=== PATIENT | male | born 1975 | race American Indian/Alaskan Native ===

== ENCOUNTER 2018-03-15 14:10 | Emergency (ER) | payer SELFPAY ==
[2018-03-15] MEDS ORDERED: NACL 0.9% 500 ML 500 ML IV ONE (14:32)
[2018-03-15 15:02] LABS: Basophils # (Auto) 0.1 K/mm3 (0.0-0.1); Basophils % (Auto) 0.8 % (0.0-1.8); Eosinophils # (Auto) 0.1 K/mm3 (0.0-0.4); Eosinophils % (Auto) 0.4 % (0.0-4.3); Hematocrit 46.5 % (35.5-45.6); Hemoglobin 15.7 gm/dl (11.8-15.2); Lymphocytes # (Auto) 0.9 K/mm3 (1.2-5.4); Lymphocytes % (Auto) 5.2 % (13.4-35.0); Mean Corpuscular HGB Conc 34 % (32-34); Mean Corpuscular Hemoglobin 29 pg (28-32); Mean Corpuscular Volume 85 fl (84-94); Monocytes # (Auto) 1.5 K/mm3 (0.0-0.8); Platelet Count 299 K/mm3 (140-440); Red Blood Count 5.49 M/mm3 (3.65-5.03); Red Cell Distribution Width 14.2 % (13.2-15.2)
[2018-03-15 15:09] LABS: Alanine Aminotransferase 12 units/L (7-56); Albumin 3.7 g/dL (3.9-5); BUN/Creatinine Ratio 12; Blood Urea Nitrogen 12 mg/dL (9-20); Calcium 9.1 mg/dL (8.4-10.2); Hemolysis Index 15
[2018-03-15] MEDS ORDERED: TYLENOL PO ONE (15:49)
[2018-03-15] MEDS ORDERED: TORADOL IV ONE (15:50)
[2018-03-15 15:53] LABS: INR 1.05 (0.87-1.13)
[2018-03-15] MEDS ORDERED: HumuLIN R IV ONE ×2 (16:13→18:39)
[2018-03-15] MEDS ORDERED: NACL 0.9% 1000 ML 1,000 ML IV ONE ×2 (16:14→18:38)
[2018-03-15 16:38] LABS: Bilirubin,Urine NEG (Negative); Blood,Urine NEG (Negative); Color,Urine Yellow (Yellow); Urobilinogen,Urine < 2.0 mg/dL (<2.0); WBC,Urine < 1.0 /HPF (0.0-6.0)
--- NOTE | 2018-03-15 16:39 | Emergency Department Report ---
HPI - General Chief Complaint: Fever Time Seen by Provider: 03/15/18 15:48 - HPI HPI: 42-year-old male presents to the emergency department with complaint of lower abdominal pain and swelling with concern for infection. The patient says that he was bit by some unknown insect or something about one week ago. He tried treating the area with some topical antibiotics and had a few penicillin pills left over from some time in the past. However does not appear to have helped as the area of redness and discomfort has increased and started to swell. He has presented with a low-grade fever. The patient has a history of rvm-[id number]-fsvysswca diabetes but says that he has "weaned myself off of" the medications. No recent travel or sick contacts at home. No problems with bowel or bladder. ED Past Medical Hx - Past Medical History Previous Medical History?: Yes Hx Hypertension: Yes Hx Diabetes: Yes - Surgical History Additional Surgical History: left leg - Social History Smoking Status: Never Smoker Substance Use Type: None - Medications Home Medications: Home Medications Medication Instructions Recorded Confirmed Last Taken Type Garlic [Odor Free Garlic] 100 mg PO TID 03/15/18 03/15/18 Unknown History HYDROcodone/APAP 5-325 [[place] 1 each PO Q6HR PRN #12 tablet 03/15/18 Unknown Rx 5/325] Ibuprofen [Ibu] 800 mg PO TID 03/15/18 03/15/18 03/15/18 History Penicillin Vk [Veetids TAB] 250 mg PO TID 03/15/18 03/15/18 Unknown History Sulfamethoxazole/Trimethoprim 1 each PO BID #20 tablet 03/15/18 Unknown Rx [Bactrim DS TAB] ED Review of Systems ROS: Stated complaint: POSS INSECT BITE Other details as noted in HPI Comment: All other systems reviewed and negative Constitutional: fever. denies: weakness Eyes: denies: eye pain, eye discharge, vision change ENT: denies: ear pain, throat pain Respiratory: denies: cough, shortness of breath, wheezing Cardiovascular: denies: chest pain, palpitations Gastrointestinal: abdominal pain. denies: nausea, vomiting Genitourinary: denies: dysuria, discharge Musculoskeletal: denies: back pain, joint swelling, arthralgia Skin: rash, change in color Neurological: denies: headache, weakness, paresthesias Physical Exam - Physical Exam Vital Signs: Vital Signs 03/15/18 03/15/18 03/15/18 14:17 14:28 14:52 Temperature 100.7 F H 100.7 F H Pulse Rate 115 H 117 H Respiratory 15 24 Rate Blood Pressure 155/104 155/104 126/78 Blood Pressure [Left] O2 Sat by Pulse 98 98 Oximetry 03/15/18 03/15/18 15:00 15:15 Temperature 100.6 F H Pulse Rate 106 H 106 H Respiratory 12 11 L Rate Blood Pressure 120/76 120/76 Blood Pressure 120/76 [Left] O2 Sat by Pulse 96 97 Oximetry Physical Exam: GENERAL: The patient is well-developed well-nourished. HENT: Normocephalic. Atraumatic. Patient has moist mucous membranes. EYES: Extraocular motions are intact. Pupils equal reactive to light bilaterally. NECK: Supple. Trachea is midline. CHEST/LUNGS: Clear to auscultation. There is no respiratory distress noted. HEART/CARDIOVASCULAR: Regular. There is mild tachycardia. There is no murmur. ABDOMEN: Abdomen is soft. There is tenderness to the lower middle and lower left abdomen. No guarding. Patient has normal bowel sounds. Obese habitus. SKIN: Patient has erythema, warmth and thickening of the skin to the lower abdomen from midline to the left lower quadrant. Some of the skin has a orange peel type appearance and there is an area in the middle that feels very indurated. All this appears consistent with a cellulitis NEURO: The patient is awake, alert, and oriented. The patient is cooperative. The patient has no focal neurologic deficits. The patient has normal speech. MUSCULOSKELETAL: There is no tenderness or deformity. There is no limitation range of motion. There is no evidence of acute injury. ED Course Vital Signs 03/15/18 03/15/18 03/15/18 14:17 14:28 14:52 Temperature 100.7 F H 100.7 F H Pulse Rate 115 H 117 H Respiratory 15 24 Rate Blood Pressure 155/104 155/104 126/78 Blood Pressure [Left] O2 Sat by Pulse 98 98 Oximetry 03/15/18 03/15/18 15:00 15:15 Temperature 100.6 F H Pulse Rate 106 H 106 H Respiratory 12 11 L Rate Blood Pressure 120/76 120/76 Blood Pressure 120/76 [Left] O2 Sat by Pulse 96 97 Oximetry ED Medical Decision Making - Lab Data Result diagrams: 03/15/18 14:37 03/15/18 14:37 - Radiology Data Radiology results: report reviewed EXAM: US ABDOMEN LIMITED HISTORY: soft tissue, lower abd, cellulitis and abscess? In the left lower quadrant of the abdomen. Status post bug bite. TECHNIQUE: Limited soft tissue ultrasound of the left lower quadrant abdomen PRIORS: None. FINDINGS: Evaluation was performed over the area of both bite. There is subcutaneous soft tissue swelling in the area which can be seen with cellulitis. However, no well-defined focal solid or cystic collection is seen in the region. No evidence for abscess is seen. IMPRESSION: Dominique no evidence for abscess or other fluid collection in the left lower quadrant of the abdomen. There is subcutaneous edema present which can be associated with cellulitis. Transcribed By: ALONSO Dictated By: MAURICE ALDANA MD Electronically Authenticated By: MAURICE ALDANA MD Signed Date/Time: 03/15/181821 - Medical Decision Making This patient presents with lower abdominal discomfort, redness, swelling. He presents with some tachycardia and a fever. On top of that the patient is a non -insulin-dependent diabetic who has been noncompliant with his medications. Patient did have a low-grade fever and was given some Tylenol and Toradol. Labs show a leukocytosis of 17,000. He has a elevated blood sugar of 580 but there is no significant elevation in the anion gap or any venous acidosis and therefore low suspicion for DKA. The patient was convinced he had an abdominal wall abscess and was pushing very hard for an I&D and then D/C home. He allowed me to do an U/S that did not show any abscess but does appear to confirm the suspicion of cellulitis. Regarding his hyperglycemia, he was given 2L of NS and two doses of IV insulin and the BS came down to about 360. He was given a dose of IV ABX. With the patient's cellulitis, leukocytosis, fever, there is concern that the patient is starting to develop sepsis. On top of that, the patient has the cellulitis and is an uncontrolled diabetic. For these reasons I told the patient repeatedly that he needs to be admitted to the hospital for IV antibiotics and further evaluation. The patient would not agree to admission and/or hospitalization. I had a long conversation with the patient regarding my concerns and the risks of leaving AGAINST MEDICAL ADVICE which would include worsening of his hyperglycemia and possible DKA or HHNK, sepsis and/or septic shock which could then lead to hypotension, coma or even . I explained that cellulitis and other infections in diabetics often have worse outcomes and he should also be admitted for the hyperglycemia and a few days of IV antibiotics. However despite all of the lab and imaging results given to the patient, despite a lengthy conversation with my concerns and/or the risks of leaving, the patient still will not agree to admission. The patient is awake and alert and has a normal medical and/or decision-making capacity and did sign the AMA form. However I still gave the patient a prescription for antibiotics, pain medication, and referrals for primary care. He also understands that he can return immediately to the emergency department if he changes his mind regarding admission or has any worsening of his symptoms or with any acute distress. - Differential Diagnosis cellulitis, abscess, DKA, HHNK, sepsis Critical Care Time: No Critical care attestation.: If time is entered above; I have spent that time in minutes in the direct care of this critically ill patient, excluding procedure time. ED Disposition Clinical Impression: Cellulitis Qualifiers: Site of cellulitis: trunk Site of cellulitis of trunk: abdominal wall Qualified Code(s): L03.311 - Cellulitis of abdominal wall Fever Qualifiers: Fever type: unspecified Qualified Code(s): R50.9 - Fever, unspecified Uncontrolled diabetes mellitus Qualifiers: Diabetes mellitus type: type 2 Glycemic state: with hyperglycemia Qualified Code(s): E11.65 - Type 2 diabetes mellitus with hyperglycemia Hyperglycemia due to type 2 diabetes mellitus Qualifiers: Diabetes mellitus rodent exterminator insulin use: without penitentiary use Qualified Code(s ): E11.65 - Type 2 diabetes mellitus with hyperglycemia Disposition: DC-07 LEFT AGAINST MED ADVICE Is pt being admited?: No Condition: Fair Instructions: Cellulitis (ED), Fever in Adults (ED), Diabetes Mellitus Type 2 in Adults (ED), Diabetic Hyperglycemia (ED) Additional Instructions: Please follow up with a primary care physician in the next few days without fail. Please return to the emergency department if you change your mind about admission, you have worsening of your abdominal pain, intractable fever, or with any acute distress. Please take the antibiotics as prescribed. You have been prescribed a medication that is sedating and therefore should not be taken prior to driving, working, and responsible for children and in no way should be mixed with alcohol of any quantity. Try and stay away from foods that are high in sugar, carbohydrates and starches to help with your blood sugar. Keep a Blood sugar log. Prescriptions: HYDROcodone/APAP 5-325 [[place] 5/325] 1 each PO Q6HR PRN #12 tablet PRN Reason: Pain Sulfamethoxazole/Trimethoprim [Bactrim DS TAB] 1 each PO BID #20 tablet Referrals: GRAEME AKINS MD [Staff Physician] - [facility] [Outside] - [facility] Forms: AMA Form Time of Disposition: 20:38
[2018-03-15] MEDS ORDERED: VANCOMYCIN/NS 1 GM/250 ML 1 GM/250 ML BAG IV SCH (17:00)
[2018-03-15] MEDS ORDERED: MORPHINE IV ONE (17:25)
--- NOTE | 2018-03-15 18:23 | Ultrasound Report ---
FINAL REPORT EXAM: US ABDOMEN LIMITED HISTORY: soft tissue, lower abd, cellulitis and abscess? In the left lower quadrant of the abdomen. Status post bug bite. TECHNIQUE: Limited soft tissue ultrasound of the left lower quadrant abdomen PRIORS: None. FINDINGS: Evaluation was performed over the area of both bite. There is subcutaneous soft tissue swelling in the area which can be seen with cellulitis. However, no well-defined focal solid or cystic collection is seen in the region. No evidence for abscess is seen. IMPRESSION: Dominique no evidence for abscess or other fluid collection in the left lower quadrant of the abdomen. There is subcutaneous edema present which can be associated with cellulitis.
[2018-03-15 22:44] VITALS: BP 127/84
== END 2018-03-15 22:46 | disposition left against medical advice (07) ==
LOC: ED 14:10
DX: L03.311 Cellulitis of abdominal wall (principal); E11.65 Type 2 diabetes mellitus with hyperglycemia; I10 Essential (primary) hypertension
CPT/HCPCS: 36415; 76705; 80053; 81001; 82140; 82805; 82962; 85025; 85610; 87040; 87086; 93005; 93010; 96365; 96375; 96376; 99285; J1885; J3370; J7030; J1815; J2270

== ENCOUNTER 2018-12-13 11:39 | Inpatient (IN) | payer OTHER ==
[2018-12-13] MEDS ORDERED: NACL 0.9% 500 ML 500 ML IV ONE ×2 (11:56→20:26)
[2018-12-13] MEDS ORDERED: NACL 0.9% 1000 ML 1,000 ML ONE ×2 (11:58→20:44)
[2018-12-13] MEDS ORDERED: NACL 0.9% 1000 ML IV ONE (12:04)
[2018-12-13] MEDS ORDERED: ZOFRAN IV ONE ×2 (12:08→13:15)
[2018-12-13] MEDS ORDERED: MORPHINE IV ONE (12:08)
--- NOTE | 2018-12-13 12:20 | Emergency Department Report ---
ED General Adult HPI - General Chief complaint: Wound/Laceration Stated complaint: HYPERGLYCEMIA Time Seen by Provider: 12/13/18 12:03 Source: patient, EMS Mode of arrival: Stretcher Limitations: No Limitations - History of Present Illness Initial comments: The patient presents to the emergency department via EMS for a wound on his right leg. Patient states that he is diabetic and noticed that the wound began to get worse last week but has been present for quite some time. Patient denies any chest pain, shortness of breath, or abdominal pain. -: Gradual Location: lower extremity (extremities) Radiation: non-radiation Severity scale (0 -10): 8 Quality: sharp Consistency: constant Improves with: none Worsens with: none Associated Symptoms: denies other symptoms Treatments Prior to Arrival: none - Related Data Home Medications Medication Instructions Recorded Confirmed Last Taken Garlic [Odor Free Garlic] 100 mg PO TID 03/15/18 03/15/18 Unknown Ibuprofen [Ibu] 800 mg PO TID 03/15/18 03/15/18 03/15/18 Penicillin Vk [Veetids TAB] 250 mg PO TID 03/15/18 03/15/18 Unknown Previous Rx's Medication Instructions Recorded Last Taken Type HYDROcodone/APAP 5-325 [[place] 1 each PO Q6HR PRN #12 tablet 03/15/18 Unknown Rx 5/325] Sulfamethoxazole/Trimethoprim 1 each PO BID #20 tablet 03/15/18 Unknown Rx [Bactrim DS TAB] Allergies Allergy/AdvReac Type Severity Reaction Status Date / Time No Known Allergies Allergy Unverified 03/15/18 14:28 ED Review of Systems ROS: Stated complaint: HYPERGLYCEMIA Other details as noted in HPI Comment: All other systems reviewed and negative Constitutional: denies: chills, fever Eyes: denies: eye pain, eye discharge, vision change ENT: denies: ear pain, throat pain Respiratory: denies: cough, shortness of breath, wheezing Cardiovascular: denies: chest pain, palpitations Endocrine: no symptoms reported Gastrointestinal: denies: abdominal pain, nausea, diarrhea Genitourinary: denies: urgency, dysuria Musculoskeletal: denies: back pain, joint swelling, arthralgia Skin: denies: rash, lesions Neurological: denies: headache, weakness, paresthesias Psychiatric: denies: anxiety, depression Hematological/Lymphatic: denies: easy bleeding, easy bruising ED Past Medical Hx - Past Medical History Previous Medical History?: Yes Hx Hypertension: Yes Hx Diabetes: Yes - Surgical History Past Surgical History?: Yes Additional Surgical History: left leg - Social History Smoking Status: Former Smoker Substance Use Type: None - Medications Home Medications: Home Medications Medication Instructions Recorded Confirmed Last Taken Type Garlic [Odor Free Garlic] 100 mg PO TID 03/15/18 03/15/18 Unknown History HYDROcodone/APAP 5-325 [[place] 1 each PO Q6HR PRN #12 tablet 03/15/18 Unknown Rx 5/325] Ibuprofen [Ibu] 800 mg PO TID 03/15/18 03/15/18 03/15/18 History Penicillin Vk [Veetids TAB] 250 mg PO TID 03/15/18 03/15/18 Unknown History Sulfamethoxazole/Trimethoprim 1 each PO BID #20 tablet 03/15/18 Unknown Rx [Bactrim DS TAB] ED Physical Exam - General Limitations: No Limitations General appearance: alert, in no apparent distress - Head Head exam: Present: atraumatic, normocephalic - Eye Eye exam: Present: normal appearance, PERRL, EOMI - ENT ENT exam: Present: mucous membranes moist - Neck Neck exam: Present: normal inspection - Respiratory Respiratory exam: Present: normal lung sounds bilaterally. Absent: respiratory distress, wheezes, rales - Cardiovascular Cardiovascular Exam: Present: normal rhythm, tachycardia. Absent: systolic murmur, diastolic murmur, rubs, gallop - GI/Abdominal GI/Abdominal exam: Present: soft, normal bowel sounds. Absent: distended, tenderness - Rectal Rectal exam: Present: deferred - Extremities Exam Extremities exam: Present: other (malodorous wound or of the right upper extremity with surrounding erythema and drainage with crepitus on exam very consistent with necrotizing fasciitis) - Back Exam Back exam: Present: normal inspection - Neurological Exam Neurological exam: Present: alert, oriented X3, CN II-XII intact. Absent: motor sensory deficit ((No nondistended) - Psychiatric Psychiatric exam: Present: normal affect, normal mood - Skin Skin exam: Present: warm, dry, intact, normal color. Absent: rash ED Course Vital Signs 12/13/18 12/13/18 11:52 12:36 Temperature 98.9 F 99.1 F Pulse Rate 150 H 147 H Respiratory 26 H 22 Rate Blood Pressure 121/66 Blood Pressure 134/66 [Right] O2 Sat by Pulse 99 95 Oximetry ED Medical Decision Making - Lab Data Result diagrams: 12/13/18 12:14 Lab Results 12/13/18 12/13/18 Range/Units 11:54 12:00 VBG pH 7.391 (7.320-7.420) POC Glucose > 500 H (70-105) Lab Results 12/13/18 12/13/18 Range/Units 11:54 12:00 VBG pH 7.391 (7.320-7.420) POC Glucose > 500 H (70-105) Lab Results 12/13/18 12/13/18 12/13/18 Range/Units 11:54 12:00 12:14 WBC 26.7 H (4.5-11.0) K/mm3 RBC 4.72 (3.65-5.03) M/mm3 Hgb 13.2 (11.8-15.2) gm/dl Hct 40.4 (35.5-45.6) % MCV 86 (84-94) fl MCH 28 (28-32) pg MCHC 33 (32-34) % RDW 15.6 H (13.2-15.2) % Plt Count 286 (140-440) K/mm3 VBG pH 7.391 (7.320-7.420) POC Glucose > 500 H (70-105) - EKG Data -: EKG Interpreted by Me EKG shows normal: sinus rhythm Rate: tachycardia - Medical Decision Making Sepsis protocol initiated Surgical Consultation obtained Patient will go to the OR Critical Care Time: Yes Critical care time in (mins) excluding proc time.: 35 Critical care attestation.: If time is entered above; I have spent that time in minutes in the direct care of this critically ill patient, excluding procedure time. ED Disposition Clinical Impression: Necrotizing fasciitis, Sepsis Disposition: [id number] OP ADMIT IP TO THIS HOSP Is pt being admited?: Yes Does the pt Need Aspirin: No Condition: Fair
--- NOTE | 2018-12-13 12:27 | History and Physical Report ---
History of Present Illness Chief complaint: My leg hurts History of present illness: 43 YO Male with MO, HTN, DM presents to ED for evaluation. Pt states that he has experienced redness and pain in his right leg over the past week with acutely worsening symptoms over the past 2 days. Pt acknowledges foul smelling discharge from a newly formed thigh wound which has developed over the past 2 days. Pt states that the pain to his leg is 7-8/10, constant, worsened with movement, relieved somewhat with rest/nonmovement. EMS was notified, and upon arrival the patient was found to be in distress. Pt transported to [facility]. Pt seen and evaluated in ED and found to have RLE Necrotizing Fasciitis, as well as Sepsis and DKA. Pt admitted to ICU and initiated on DKA protocol. Surgery team consulted in ED. Pt also initiated on Sepsis protocol, and treated with braod spectrum IV antibiotic therapy and IVF resuscitation therapy. Pt acknowledges subjective fever. Pt denies CP, Palpitations, Trauma, Falls, BRBPR, Shortness of breath, calf pain, prolonged travel/immobility, individual/family history of DVT/PE. No prior admission listed for review. All listed medication reconciled at time of admission. Past History Past Medical History: diabetes, hypertension, other (MO) Past Surgical History: Other (Left leg surgery) Social history: single, lives with family. denies: smoking, alcohol abuse, prescription drug abuse Family history: diabetes, hypertension Medications and Allergies Allergies Allergy/AdvReac Type Severity Reaction Status Date / Time No Known Allergies Allergy Unverified 03/15/18 14:28 Home Medications Medication Instructions Recorded Confirmed Last Taken Type No Known Home Medications [No 12/13/18 12/13/18 Unknown History Reported Home Medications] Active Meds: Active Medications Vancomycin HCl 2,000 mg/ (Sodium Chloride) 540 mls @ 333 mls/hr IV ONCE ONE; Protocol Stop: 12/13/18 13:45 Piperacillin Sod/Tazobactam Sod (Zosyn/Ns 4.5gm/100ml) 4.5 gm in 100 mls @ 200 mls/hr IV Q8HR [facility]; Protocol Review of Systems Constitutional: fever, no weight loss, no weight gain, no chills, no sweats Ears, nose, mouth and throat: no ear pain, no ear discharge, no tinnitis, no decreased hearing, no nose pain Cardiovascular: no chest pain, no orthopnea, no palpitations, no rapid/irregular heart beat, no edema Respiratory: no cough, no cough with sputum, no excessive sputum, no hemoptysis, no shortness of breath Gastrointestinal: nausea, no vomiting, no diarrhea, no constipation Genitourinary Male: no hematuria, no flank pain, no discharge, no urinary frequency, no urinary hesitancy Rectal: no pain, no incontinence, no bleeding Musculoskeletal: no neck stiffness, no neck pain, no shooting arm pain, no arm numbness/tingling, no low back pain, no leg numbness/tingling Integumentary: redness, no rash, no pruritis, no wounds, no jaundice, no boils Neurological: no head injury, no transient paralysis, no paralysis, no weakness, no parathesias, no tingling, no seizures, no syncope Psychiatric: no anxiety, no memory loss, no change in sleep habits, no insomnia, no hypersomnia, no change in libido, no suicidal ideation, no hallucinations Endocrine: no cold intolerance, no heat intolerance, no polyphagia, no polydipsia, no polyuria, no excessive sweating, no flushing Hematologic/Lymphatic: no easy bruising, no easy bleeding Allergic/Immunologic: no urticaria, no allergic rhinitis, no wheezing Exam - Constitutional Vitals: Temp Pulse Resp BP Pulse Ox 98.9 F 150 H 26 H 121/66 99 12/13/18 11:52 12/13/18 11:52 12/13/18 11:52 12/13/18 11:52 12/13/18 11:52 General appearance: Present: severe distress, obese, disheveled - EENT Eyes: Present: PERRL ENT: hearing intact, clear oral mucosa - Neck Neck: Present: supple, normal ROM - Respiratory Respiratory effort: normal Respiratory: bilateral: CTA - Cardiovascular Rhythm: other (tachycardia) Heart Sounds: Present: S1 & S2. Absent: rub, click - Extremities Extremities: pulses symmetrical, No edema Peripheral Pulses: abnormal (capillary refill greater than 3.5 seconds) - Abdominal General gastrointestinal: Present: soft, non-tender, non-distended, normal bowel sounds Male genitourinary: Present: normal - Integumentary Integumentary: Present: clear, dry, erythema - Musculoskeletal Musculoskeletal: generalized weakness - Psychiatric Psychiatric: appropriate mood/affect, intact judgment & insight - Neurologic Neurologic: CNII-XII intact, moves all extremities Results - Labs CBC & Chem 7: 12/13/18 12:14 12/13/18 14:52 Labs: Abnormal lab results 12/13/18 Range/Units 11:54 POC Glucose > 500 H (70-105) Assessment and Plan - Patient Problems (1) Sepsis Current Visit: Yes Status: Acute Qualifiers: Sepsis type: sepsis due to unspecified organism Qualified Code(s): A41.9 - Sepsis, unspecified organism Plan to address problem: Sepsis Protocol: Admit to ICU, IVF resuscitation therapy, IV antibiotic therapy, CBC, CMP, Blood Cultures, serial lactic acid, monitor uop q shift. The high probability of a clinically significant, sudden or life threatening deterioration of the [Neuro, renal, cardiac,respiratory] system(s) required my full and direct attention, intervention and personal management. The aggregate critical care time was [65] minutes. This time is in addition to time spent per forming reported procedures but includes the following: [x] Data Review and interpretation [x] Patient assessment and monitoring of vital signs [x] Documentation [x] Medication orders and management (2) DKA (diabetic ketoacidoses) Current Visit: Yes Status: Acute Qualifiers: Diabetes mellitus type: type 1 Plan to address problem: DKA Protocol: Insulin drip, IVF resuscitation therapy, serial bmp, monitor uop q shift, monitor anion gap. (3) Obesity hypoventilation syndrome Current Visit: Yes Status: Acute Plan to address problem: supplemental oxygen, nebulizer therapy, pulse oximetry, NIPPV as clinically indicated, supportive care. (4) Necrotizing fasciitis Current Visit: Yes Status: Acute Plan to address problem: IV antibiotic therapy, Surgery consulted in ED, Pending surgical intervention when medically stable. (5) Acidosis Current Visit: Yes Status: Acute Plan to address problem: IVF resuscitation therapy, serial lactic acid, supportive care. (6) DVT prophylaxis Current Visit: Yes Status: Acute Plan to address problem: SCD to BLE while in bed, Prophylactic heparin
[2018-12-13 12:29] LABS: Hematocrit 40.4 % (35.5-45.6); Hemoglobin 13.2 gm/dl (11.8-15.2); Mean Corpuscular HGB Conc 33 % (32-34); Mean Corpuscular Volume 86 fl (84-94); Platelet Count 286 K/mm3 (140-440); Red Blood Count 4.72 M/mm3 (3.65-5.03); Red Cell Distribution Width 15.6 % (13.2-15.2)
--- NOTE | 2018-12-13 12:37 | XRay Report ---
AP CHEST: HISTORY: Possible sepsis Moderate cardiomegaly and mild pulmonary venous congestion are identified. The lungs are generally clear. No evidence for pneumonia, CHF or pneumothorax. IMPRESSION: Cardiomegaly and pulmonary venous congestion.
[2018-12-13] MEDS ORDERED: SODIUM CHLORIDE FLUSH SYRINGE 10 ML IV PRN (12:45)
[2018-12-13] MEDS ORDERED: D50W (25GM) Syringe IV PRN (12:46)
[2018-12-13 12:48] LABS: Albumin 2.6 g/dL (3.9-5); Calcium 8.5 mg/dL (8.4-10.2)
[2018-12-13 12:52] LABS: INR 1.13 (0.87-1.13)
[2018-12-13] MEDS: ZOSYN/NS 4.5GM/100ML 4.5 GM/100 ML VIAL IV SCH ×2 (12:52→22:29)
[2018-12-13] MEDS ORDERED: VANCOMYCIN PHARMACY TO DOSE IV SCH (13:00)
[2018-12-13] MEDS ORDERED: ZOFRAN IM ONE (13:19)
--- NOTE | 2018-12-13 13:32 | Consultation ---
History of Present Illness Consult date: 12/13/18 Reason for consult: other (right leg wound) Chief complaint: right leg wound - History of present illness History of present illness: 43 year old male with a one week hx of worsening right leg wound. History is a little unclear as he and his mother in the room have differing account of when events started. He admits to being non compliant with medication for diabetes and htn because he says the medication makes him feel sick. He has had wounds before that have need to be surgically debrided. Past History Past Medical History: diabetes, hypertension Past Surgical History: Other (left leg soft tissue excsions) Social history: smoking Family history: diabetes, stroke Medications and Allergies Allergies Allergy/AdvReac Type Severity Reaction Status Date / Time No Known Allergies Allergy Unverified 03/15/18 14:28 Home Medications Medication Instructions Recorded Confirmed Last Taken Type Garlic [Odor Free Garlic] 100 mg PO TID 03/15/18 03/15/18 Unknown History HYDROcodone/APAP 5-325 [[place] 1 each PO Q6HR PRN #12 tablet 03/15/18 Unknown Rx 5/325] Ibuprofen [Ibu] 800 mg PO TID 03/15/18 03/15/18 03/15/18 History Penicillin Vk [Veetids TAB] 250 mg PO TID 03/15/18 03/15/18 Unknown History Sulfamethoxazole/Trimethoprim 1 each PO BID #20 tablet 03/15/18 Unknown Rx [Bactrim DS TAB] Active Meds: Active Medications Dextrose (D50w (25gm) Syringe) 0 ml IV ONCE PRN PRN Reason: Hypoglycemia Vancomycin HCl 2,000 mg/ (Sodium Chloride) 540 mls @ 270 mls/hr IV ONCE ONE; Protocol Stop: 12/13/18 15:59 Piperacillin Sod/Tazobactam Sod (Zosyn/Ns 4.5gm/100ml) 4.5 gm in 100 mls @ 200 mls/hr IV Q8HR EVA; Protocol Last Admin: 12/13/18 12:52 Dose: 200 mls/hr Documented by: Insulin Human Regular 100 (units/ Sodium Chloride) 100 mls @ 1 mls/hr IV TITR EVA; Protocol Sodium Chloride (Sodium Chloride Flush Syringe 10 Ml) 10 ml IV BID EVA Sodium Chloride (Sodium Chloride Flush Syringe 10 Ml) 10 ml IV PRN PRN PRN Reason: LINE FLUSH Review of Systems - Constitutional weakness, poor appetite - Gastrointestinal nausea, vomiting, diarrhea - Muskuloskeletal shooting leg pain (right thigh pain) - Integumentary wounds, blisters, darkening of skin Exam Vital Signs Temp Pulse Resp BP Pulse Ox 98.9 F 150 H 26 H 121/66 99 12/13/18 11:52 12/13/18 11:52 12/13/18 11:52 12/13/18 11:52 12/13/18 11:52 - General physical appearance Positive: moderate distress, severe pain, obese - Abdomen Abdomen: Present: soft - Additional Findings right thigh with extensive cellulitis that wraps from anterior to posterior. The anterior proximal thigh has necrotic skin measuring more than [id number] with blisters and foul odor. sensory is intact but exquisitely tender to any palpation. Results - Labs 12/13/18 12:14 12/13/18 12:00 Abnormal lab results 12/13/18 12/13/18 12/13/18 Range/Units 11:54 12:00 12:00 WBC (4.5-11.0) K/mm3 RDW (13.2-15.2) % PT 15.2 H (12.2-14.9) Sec. Sodium 123 L (137-145) mmol/L Chloride 80.4 L (98-107) mmol/L Carbon Dioxide 18 L (22-30) mmol/L BUN 60 H (9-20) mg/dL Creatinine 3.0 H (0.8-1.5) mg/dL Glucose 646 H* (75-100) mg/dL POC Glucose > 500 H (70-105) Lactic Acid (0.7-2.0) mmol/L Alkaline Phosphatase 144 H (35-129) units/L Total Protein 5.3 L (6.3-8.2) g/dL Albumin 2.6 L (3.9-5) g/dL 12/13/18 12/13/18 Range/Units 12:00 12:14 WBC 26.7 H (4.5-11.0) K/mm3 RDW 15.6 H (13.2-15.2) % PT (12.2-14.9) Sec. Sodium (137-145) mmol/L Chloride (98-107) mmol/L Carbon Dioxide (22-30) mmol/L BUN (9-20) mg/dL Creatinine (0.8-1.5) mg/dL Glucose (75-100) mg/dL POC Glucose (70-105) Lactic Acid 4.30 H* (0.7-2.0) mmol/L Alkaline Phosphatase (35-129) units/L Total Protein (6.3-8.2) g/dL Albumin (3.9-5) g/dL Diabetes panel 12/13/18 Range/Units 12:00 Sodium 123 L (137-145) mmol/L Potassium 4.7 (3.6-5.0) mmol/L Chloride 80.4 L (98-107) mmol/L Carbon Dioxide 18 L (22-30) mmol/L BUN 60 H (9-20) mg/dL Creatinine 3.0 H (0.8-1.5) mg/dL Glucose 646 H* (75-100) mg/dL Calcium 8.5 (8.4-10.2) mg/dL AST 15 (5-40) units/L ALT 13 (7-56) units/L Alkaline Phosphatase 144 H (35-129) units/L Total Protein 5.3 L (6.3-8.2) g/dL Albumin 2.6 L (3.9-5) g/dL Calcium panel 12/13/18 Range/Units 12:00 Calcium 8.5 (8.4-10.2) mg/dL Albumin 2.6 L (3.9-5) g/dL Pituitary panel 12/13/18 Range/Units 12:00 Sodium 123 L (137-145) mmol/L Potassium 4.7 (3.6-5.0) mmol/L Chloride 80.4 L (98-107) mmol/L Carbon Dioxide 18 L (22-30) mmol/L BUN 60 H (9-20) mg/dL Creatinine 3.0 H (0.8-1.5) mg/dL Glucose 646 H* (75-100) mg/dL Calcium 8.5 (8.4-10.2) mg/dL Adrenal panel 12/13/18 Range/Units 12:00 Sodium 123 L (137-145) mmol/L Potassium 4.7 (3.6-5.0) mmol/L Chloride 80.4 L (98-107) mmol/L Carbon Dioxide 18 L (22-30) mmol/L BUN 60 H (9-20) mg/dL Creatinine 3.0 H (0.8-1.5) mg/dL Glucose 646 H* (75-100) mg/dL Calcium 8.5 (8.4-10.2) mg/dL Total Bilirubin 0.80 (0.1-1.2) mg/dL AST 15 (5-40) units/L ALT 13 (7-56) units/L Alkaline Phosphatase 144 H (35-129) units/L Total Protein 5.3 L (6.3-8.2) g/dL Albumin 2.6 L (3.9-5) g/dL Assessment and Plan A/P :1/ right thigh necrotizing faciitis with DKA 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 once BS trending down will take for urgent wide excision and debridement of all necrotic tissue. continue abx
[2018-12-13 13:42] LABS: INR 1.28 (0.87-1.13)
[2018-12-13 13:43] LABS: Partial Thromboplastin Time 27.3 Sec. (24.2-36.6)
[2018-12-13] MEDS: HumuLIN R 100 UNITS in NACL 0.9% 99 ML IV SCH (13:49)
[2018-12-13 13:51] LABS: Band Neutrophils # (Manual) 2.1 K/mm3; Basophils % (Manual) 0 % (0.0-1.8); Eosinophils % (Manual) 0 % (0.0-4.3); Platelet Clumps Rare; Platelet Estimate Consistent w Auto; RBC Morphology Normal; Total Cells Counted 100
[2018-12-13] MEDS ORDERED: VANCOMYCIN 2,000 MG in NACL 0.9% 500 ML 500 ML IV ONE (14:00)
[2018-12-13 14:39] LABS: Calcium 8.3 mg/dL (8.4-10.2)
--- NOTE | 2018-12-13 15:06 | Anesthesia Consultation ---
Anesthesia Consult and Med Hx Date of service: 12/13/18 - Airway Anesthetic Teeth Evaluation: Good ROM Head & Neck: Adequate Mental/Hyoid Distance: Adequate Mallampati Class: Class III Intubation Access Assessment: Possibly Difficult - Pulmonary Exam CTA: Yes - Cardiac Exam Cardiac Exam: RRR - Pre-Operative Health Status ASA Pre-Surgery Classification: ASA3, Emergency Proposed Anesthetic Plan: General - Pre-Anesthesia Comment Pre-Anesthesia Comments: Admitted for DKA and Right thigh wound. HTN, DM- non compliant with meds - Pulmonary Hx Smoking: Yes - Cardiovascular System Hx Hypertension: Yes - Endocrine Hx Renal Disease: Yes (Acute Renal, Cr 2.9 ) Hx Insulin Dependent Diabetes: Yes - Other Systems Hx Obesity: Yes
[2018-12-13] MEDS ORDERED: NEOSPORIN GU IR ONE ×2 (15:14→19:56)
[2018-12-13 15:52] LABS: Calcium 8.2 mg/dL (8.4-10.2)
[2018-12-13] MEDS ORDERED: XYLOCAINE MPF 2% ONE (17:44)
[2018-12-13] MEDS ORDERED: DIPRIVAN 10 MG/ML IV ONE (17:45)
[2018-12-13] MEDS ORDERED: SUBLIMAZE ONE ×3 (17:45→19:57)
[2018-12-13] MEDS ORDERED: DILAUDID ONE (18:53)
[2018-12-13] MEDS ORDERED: DAKIN'S HALF STRENGTH TP ONE (18:53)
[2018-12-13] MEDS ORDERED: SUBLIMAZE IV PRN (18:57)
--- NOTE | 2018-12-13 18:57 | Anesthesia Day of Surgery ---
Anesthesia Day of Surgery - Day of Surgery Patient Examined: Yes Patient H&P Reviewed: Yes Patient is NPO: Yes
[2018-12-13] MEDS ORDERED: ZOFRAN ONE (20:51)
[2018-12-13] MEDS ORDERED: LACTATED RINGERS 1,000 ML ONE (21:39)
[2018-12-13 21:41] LABS: Hematocrit 35.1 % (35.5-45.6); Hemoglobin 11.6 gm/dl (11.8-15.2); Mean Corpuscular HGB Conc 33 % (32-34); Mean Corpuscular Volume 86 fl (84-94); Platelet Count 300 K/mm3 (140-440); Red Blood Count 4.08 M/mm3 (3.65-5.03); Red Cell Distribution Width 15.5 % (13.2-15.2)
--- NOTE | 2018-12-13 21:44 | Operative Report ---
Operative Report Operative Report: Date: 12/13/18 Pre-op Dx: necrotizing faciitis of Right leg, Sepsis Post-op Dx: same as pre-op Procedure: Wide local excision and debridement or necrotic soft tissue of right let, with wound culture Surgeon: Isabela Montes MD Indication: 43 yo male presented to ED with one week hx of Right leg wound, with concurrent DKA. Clinical assessment was necrotizing faciitis. The urgency of the situation was discussed with the patient and his mother, pt signed informed consent. His blood glucose was decreased from >600 to the 300s after being placed on an insulin drip, and IV resuscitation. He was also started on broad spectrum antibiotics. EBL: 800cc Anesthesia: LMA general Complications: none Procedure: Pt was brought into OR suite and laid in supine position. General anesthesia, with LMA device was successfully induced. Pt right leg was positioned in a frog leg manner and it was prepped and draped in sterile fashion. The initial skin wound was noted to be about 15x10 cm. Using a 10 blade scalpel incisions were made around the obvious wound down to the fascia. There was noted to be significant fat, fascia and muscle that extended well beyond the abscess cavity that initially excised. He had cellulitis down to the knee, over the mons pubis, and tracking up his right hip and side. There was non-viable tissue tracking into the groin and down to the femoral vessels. There was significant bleeding with blood loss, and the patient was moderately hypotensive through out the case although his blood sugar had decrease to <300. Due to the fact that there is extensive necrotic fascia tracking far beyond the [id number] wound boundaries that were created, combined with the fact that he was not very stable, it was decided to terminate the excision at this point and allow the ICU to further resuscitate him with a large portion of infected tissue debulked. The area was irrigated with pulse lavage containing irrigant, and dressed with dakins solution soaked gauze. The plan is to return to the OR tomorrow once he is tanked up for further exploration and debridement. Pt tolerated the procedure without having to be put on vaso-pressors. He was returned to the ICU without incident. All counts were correct.
--- NOTE | 2018-12-13 22:17 | Post Anesthesia Evaluation ---
- Post Anesthesia Evaluation Patient Participated: No (drowsy but arousable) Airway Patent: Yes Stable Respiratory Function: Yes (tachypnea slightly improved compared to preop. Respiratory effort unchanged) Nausea/Vomiting: No Temp > 96.8F: Yes (febrile) Pain Manageable: Yes Adequeate Hydration: Yes Anesthesia Complications: No Patient on Ventilator: No Other Comments: CBC, BMP, and lactate acid sent. BP stabilized after fluid bolus. Patient transported to ICU for further management.
[2018-12-13] MEDS: SODIUM CHLORIDE FLUSH SYRINGE 10 ML IV SCH (22:30)
[2018-12-13] MEDS: HEPARIN SUB-Q SCH (22:32)
[2018-12-13] MEDS: NEO-SYNEPHRINE 100 MG in NACL 0.9% 90 ML IV SCH (23:00)
[2018-12-13 23:49] LABS: Calcium 8.3 mg/dL (8.4-10.2)
[2018-12-14] MEDS: CLEOCIN 300 MG/50 mL 300 MG/50 ML BAG IV SCH ×4 (00:15→17:18)
[2018-12-14] MEDS ORDERED: NACL 0.9% 1000 ML 1,000 ML ONE (00:25)
[2018-12-14] MEDS: NEO-SYNEPHRINE 100 MG in NACL 0.9% 90 ML IV SCH ×2 (03:44→08:18)
[2018-12-14] MEDS: HumuLIN R 100 UNITS in NACL 0.9% 99 ML IV SCH ×2 (03:45→20:07)
[2018-12-14] MEDS: D5W/0.45% NACL/KCL 20 MEQ 20 MEQ/1,000 ML BAG IV SCH ×3 (04:01→20:12)
[2018-12-14 05:29] LABS: Calcium 7.9 mg/dL (8.4-10.2)
[2018-12-14] MEDS ORDERED: MORPHINE ONE (05:57)
[2018-12-14] MEDS: ZOSYN/NS 4.5GM/100ML 4.5 GM/100 ML VIAL IV SCH (06:00)
[2018-12-14] MEDS ORDERED: NEOSPORIN GU IR ONE ×3 (08:48→11:12)
[2018-12-14] MEDS ORDERED: XYLOCAINE MPF 2% ONE (08:51)
[2018-12-14] MEDS ORDERED: DIPRIVAN 10 MG/ML IV ONE (08:52)
[2018-12-14] MEDS ORDERED: SUBLIMAZE ONE ×2 (08:52→09:58)
[2018-12-14] MEDS: HEPARIN SUB-Q SCH (09:05)
[2018-12-14] MEDS: SODIUM CHLORIDE FLUSH SYRINGE 10 ML IV SCH (09:05)
[2018-12-14] MEDS ORDERED: NACL 0.9% 500 ML 500 ML ONE (09:09)
--- NOTE | 2018-12-14 09:18 | Anesthesia Consultation ---
Anesthesia Consult and Med Hx Date of service: 12/14/18 - Airway Anesthetic Teeth Evaluation: Good ROM Head & Neck: Adequate Mental/Hyoid Distance: Adequate Mallampati Class: Class III Intubation Access Assessment: Possibly Difficult - Pulmonary Exam CTA: Yes - Cardiac Exam Cardiac Exam: RRR - Pre-Operative Health Status ASA Pre-Surgery Classification: ASA4 Proposed Anesthetic Plan: General - Pre-Anesthesia Comment Pre-Anesthesia Comments: Tolerated right thigh debriedment 12/13. insulin drip at 3 units/hr, last bs 164. phenylephrine drip. - Pulmonary Hx Smoking: Yes - Cardiovascular System Hx Hypertension: Yes Hx Angina: No - Central Nervous System Hx Psychiatric Problems: No - Endocrine Hx Renal Disease: Yes (Acute Renal, Cr 2.8 ) Hx Insulin Dependent Diabetes: Yes - Other Systems Hx Obesity: Yes
--- NOTE | 2018-12-14 09:19 | Anesthesia Day of Surgery ---
Anesthesia Day of Surgery - Day of Surgery Patient Examined: Yes Patient H&P Reviewed: Yes Patient is NPO: Yes
[2018-12-14 09:54] LABS: Hemoglobin 11.4 gm/dl (11.8-15.2); Mean Corpuscular HGB Conc 33 % (32-34); Mean Corpuscular Volume 85 fl (84-94); Platelet Count 301 K/mm3 (140-440); Red Cell Distribution Width 15.6 % (13.2-15.2)
[2018-12-14] MEDS ORDERED: DAKIN'S FULL STRENGTH ONE (10:00)
[2018-12-14] MEDS ORDERED: NACL 0.9% IR ONE ×2 (11:12)
[2018-12-14] MEDS ORDERED: SUBLIMAZE IV PRN (11:58)
--- NOTE | 2018-12-14 12:13 | Consultation ---
History of Present Illness Consult date: 12/14/18 Requesting physician: DEUCE SHEIKH Reason for consult: other (Necrotizing Fasciitis) History of present illness: PULMONARY/CCM CONSULT NOTE (Full dictation # [id number]) Please see dictated notes for full details Past History Past Medical History: diabetes, hypertension, other ([place]) Past Surgical History: Other (Left leg surgery) Social history: single, lives with family. denies: smoking, alcohol abuse, prescription drug abuse Family history: diabetes, hypertension Medications and Allergies Allergies Allergy/AdvReac Type Severity Reaction Status Date / Time No Known Allergies Allergy Unverified 03/15/18 14:28 Home Medications Medication Instructions Recorded Confirmed Last Taken Type No Known Home Medications [No 12/13/18 12/13/18 Unknown History Reported Home Medications] Active Meds: Active Medications Dextrose (D50w (25gm) Syringe) 0 ml IV ONCE PRN PRN Reason: Hypoglycemia Fentanyl (Sublimaze) 50 mcg IV Q5MIN PRN PRN Reason: Pain , Severe (7-10) Heparin Sodium (Porcine) (Heparin) 5,000 unit SUB-Q Q12HR EVA Last Admin: 12/14/18 09:05 Dose: 5,000 unit Documented by: Insulin Human Regular 100 (units/ Sodium Chloride) 100 mls @ 1 mls/hr IV TITR EVA; Protocol Last Titration: 12/14/18 08:58 Dose: 3 units/hr, 3 mls/hr Documented by: Clindamycin HCl (Cleocin 300 Mg/50 Ml) 300 mg in 50 mls @ 100 mls/hr IV Q6HR EVA; Protocol Last Admin: 12/14/18 06:30 Dose: 100 mls/hr Documented by: Phenylephrine HCl 100 mg/ (Sodium Chloride) 100 mls @ 3 mls/hr IV TITR EVA; Protocol Last Titration: 12/14/18 08:45 Dose: 50 mcg/min, 3 mls/hr Documented by: Potassium Chloride/Dextrose/Sod Cl (D5w/0.45% Nacl/Kcl 20 Meq) 20 meq in 1,000 mls @ 125 mls/hr IV DIRECT EVA Last Admin: 12/14/18 04:01 Dose: 125 mls/hr Documented by: Piperacillin Sod/Tazobactam Sod (Zosyn/Ns 2.25 Gm/50ml) 2.25 gm in 50 mls @ 100 mls/hr IV Q6HR [facility] Morphine Sulfate (Morphine) 2 mg IV Q4H PRN PRN Reason: Pain, Moderate (4-6) Sodium Chloride (Sodium Chloride Flush Syringe 10 Ml) 10 ml IV BID EVA Last Admin: 12/14/18 09:05 Dose: 10 ml Documented by: Sodium Chloride (Sodium Chloride Flush Syringe 10 Ml) 10 ml IV PRN PRN PRN Reason: LINE FLUSH Physical Examination Vital signs: Vital Signs Temp Pulse Resp BP Pulse Ox 98.9 F 150 H 26 H 121/66 99 12/13/18 11:52 12/13/18 11:52 12/13/18 11:52 12/13/18 11:52 12/13/18 11:52 Results - Laboratory Findings CBC and BMP: 12/14/18 08:28 12/14/18 04:49 PT/INR, D-dimer PT 16.8 Sec. (12.2-14.9) H 12/13/18 13:07 INR 1.28 (0.87-1.13) H 12/13/18 13:07 Abnormal lab findings: Abnormal Labs 12/13/18 12/13/18 12/13/18 11:54 12:00 12:00 WBC Hgb Hct RDW Seg Neuts % (Manual) Lymphocytes % (Manual) Seg Neutrophils # Man Lymphocytes # (Manual) Monocytes # (Manual) PT 15.2 H INR Sodium 123 L Chloride 80.4 L Carbon Dioxide 18 L BUN 60 H Creatinine 3.0 H Glucose 646 H* POC Glucose > 500 H Lactic Acid Calcium Alkaline Phosphatase 144 H Total Protein 5.3 L Albumin 2.6 L Crossmatch 12/13/18 12/13/18 12/13/18 12:00 12:14 13:07 WBC 26.7 H Hgb Hct RDW 15.6 H Seg Neuts % (Manual) 85.0 H Lymphocytes % (Manual) 2.0 L Seg Neutrophils # Man 22.7 H Lymphocytes # (Manual) 0.5 L Monocytes # (Manual) 1.3 H PT INR Sodium Chloride Carbon Dioxide BUN Creatinine Glucose POC Glucose Lactic Acid 4.30 H* 2.80 H* Calcium Alkaline Phosphatase Total Protein Albumin Crossmatch 12/13/18 12/13/18 12/13/18 13:07 13:07 13:07 WBC Hgb Hct RDW Seg Neuts % (Manual) Lymphocytes % (Manual) Seg Neutrophils # Man Lymphocytes # (Manual) Monocytes # (Manual) PT 16.8 H INR 1.28 H Sodium 129 L Chloride 89.3 L Carbon Dioxide 16 L BUN 60 H Creatinine 2.9 H Glucose 611 H* POC Glucose Lactic Acid Calcium 8.3 L Alkaline Phosphatase Total Protein Albumin Crossmatch See Detail 12/13/18 12/13/18 12/13/18 14:29 14:52 14:52 WBC Hgb Hct RDW Seg Neuts % (Manual) Lymphocytes % (Manual) Seg Neutrophils # Man Lymphocytes # (Manual) Monocytes # (Manual) PT INR Sodium 125 L Chloride 88.9 L Carbon Dioxide 18 L BUN 58 H Creatinine 2.6 H Glucose 518 H* POC Glucose 445 H Lactic Acid 3.00 H* Calcium 8.2 L Alkaline Phosphatase Total Protein Albumin Crossmatch 12/13/18 12/13/18 12/13/18 20:42 21:22 21:35 WBC 22.8 H Hgb 11.6 L Hct 35.1 L RDW 15.5 H Seg Neuts % (Manual) Lymphocytes % (Manual) Seg Neutrophils # Man Lymphocytes # (Manual) Monocytes # (Manual) PT INR Sodium Chloride Carbon Dioxide BUN Creatinine Glucose POC Glucose 257 H 262 H Lactic Acid Calcium Alkaline Phosphatase Total Protein Albumin Crossmatch 12/13/18 12/13/18 12/13/18 21:35 21:35 22:16 WBC Hgb Hct RDW Seg Neuts % (Manual) Lymphocytes % (Manual) Seg Neutrophils # Man Lymphocytes # (Manual) Monocytes # (Manual) PT INR Sodium 133 L D Chloride 97.1 L Carbon Dioxide 21 L BUN 59 H Creatinine 2.7 H Glucose 250 H POC Glucose 204 H Lactic Acid 2.80 H* Calcium 8.0 L Alkaline Phosphatase Total Protein Albumin Crossmatch 12/13/18 12/13/18 12/13/18 23:07 23:07 23:14 WBC Hgb Hct RDW Seg Neuts % (Manual) Lymphocytes % (Manual) Seg Neutrophils # Man Lymphocytes # (Manual) Monocytes # (Manual) PT INR Sodium 131 L Chloride 95.7 L Carbon Dioxide BUN 61 H Creatinine 2.7 H Glucose 205 H POC Glucose 211 H Lactic Acid 2.70 H* Calcium 8.3 L Alkaline Phosphatase Total Protein Albumin Crossmatch 12/14/18 12/14/18 12/14/18 00:11 01:09 02:05 WBC Hgb Hct RDW Seg Neuts % (Manual) Lymphocytes % (Manual) Seg Neutrophils # Man Lymphocytes # (Manual) Monocytes # (Manual) PT INR Sodium Chloride Carbon Dioxide BUN Creatinine Glucose POC Glucose 236 H 134 H 139 H Lactic Acid Calcium Alkaline Phosphatase Total Protein Albumin Crossmatch 12/14/18 12/14/18 12/14/18 03:14 04:00 04:49 WBC Hgb Hct RDW Seg Neuts % (Manual) Lymphocytes % (Manual) Seg Neutrophils # Man Lymphocytes # (Manual) Monocytes # (Manual) PT INR Sodium 133 L Chloride Carbon Dioxide 21 L BUN 63 H Creatinine 2.8 H Glucose 150 H POC Glucose 139 H 146 H Lactic Acid Calcium 7.9 L Alkaline Phosphatase Total Protein Albumin Crossmatch 12/14/18 12/14/18 12/14/18 05:03 06:14 07:16 WBC Hgb Hct RDW Seg Neuts % (Manual) Lymphocytes % (Manual) Seg Neutrophils # Man Lymphocytes # (Manual) Monocytes # (Manual) PT INR Sodium Chloride Carbon Dioxide BUN Creatinine Glucose POC Glucose 140 H 137 H 144 H Lactic Acid Calcium Alkaline Phosphatase Total Protein Albumin Crossmatch 12/14/18 12/14/18 12/14/18 08:28 08:30 09:00 WBC 26.2 H Hgb 11.4 L Hct 35.0 L RDW 15.6 H Seg Neuts % (Manual) Lymphocytes % (Manual) Seg Neutrophils # Man Lymphocytes # (Manual) Monocytes # (Manual) PT INR Sodium Chloride Carbon Dioxide BUN Creatinine Glucose POC Glucose 151 H 164 H Lactic Acid Calcium Alkaline Phosphatase Total Protein Albumin Crossmatch 12/14/18 12/14/18 11:34 12:15 WBC Hgb Hct RDW Seg Neuts % (Manual) Lymphocytes % (Manual) Seg Neutrophils # Man Lymphocytes # (Manual) Monocytes # (Manual) PT INR Sodium Chloride Carbon Dioxide BUN Creatinine Glucose POC Glucose 148 H 170 H Lactic Acid Calcium Alkaline Phosphatase Total Protein Albumin Crossmatch
--- NOTE | 2018-12-14 12:50 | XRay Report ---
AP CHEST: HISTORY: Central line placement Right IJ venous catheter terminates at the cavoatrial junction. Cardiomegaly and pulmonary venous congestion are identified. The lungs are clear. No pneumothorax. IMPRESSION: Right IJ venous catheter as described.
[2018-12-14] MEDS: ZOSYN/NS 2.25 GM/50ML 2.25 GM/50 ML BAG IV SCH ×2 (13:40→17:18)
[2018-12-14] MEDS: MORPHINE IV PRN ×2 (14:04→20:16)
--- NOTE | 2018-12-14 14:06 | Operative Report ---
Operative Report Operative Report: Date: 12/14/18 Pre-op Dx: necrotizing faciitis of Right leg, Sepsis Post-op Dx: same as pre-op Procedure: Wide local excision and debridement or necrotic soft tissue of right leg Surgeon: Isabela Montes MD Co-surgeon: Edel Garcia DO Indication: 43 yo male presented to ED with one week hx of Right leg wound, with concurrent DKA. Clinical assessment was necrotizing faciitis. Pt is being taken back for a second look to assess for need for further debridement. Overnight he was started on light vaso-pressor support but had decreased fevers and improved tachycardia. EBL: 300cc Anesthesia: LMA general Complications: none Procedure: Pt was brought into OR suite and laid in supine position. General anesthesia, with LMA device was successfully induced. Pt right leg was positioned in a frog leg manner and it was prepped and draped in sterile fashion. After the previous dressing was the wound was noted to be dry but continued areas of necrosis. About an hour was spent sharply debriding necrotic fascia, muscle and fat. The infection is noted to be tracking along the fascial plain extensively. Attempting to barber all of the necrotic tissue and fascia for excision would likely result in a more than 2/3 degloving of his thigh. Due to significant blood loss from large engorged vessels and his continued need for vaso presser support, it was decided to debride to the of point of eliminating all gross purulent pockets and kira 'dish water' tissue. The area was treated with a pulse lavage with irrigant, hemostasis was achieved, and it was packed with dakin soaked gauze. This was followed by dry sterile dressing. Pt was awoken and taken to recovery in stable condition. By the end of the case the phenylephrine was titrated down and he taken back to ICU without complication. To get the best care in terms of adequate resources for the aggressive wound care and rehabilitation services, it is recommended that we try to transfer him to [place] [facility].
--- NOTE | 2018-12-14 14:59 | Progress Note ---
Assessment and Plan - Patient Problems (1) DKA (diabetic ketoacidoses) Current Visit: Yes Status: Acute Qualifiers: Diabetes mellitus type: type 1 Plan to address problem: Cont IV Insulin and IV Fluids (2) Necrotizing fasciitis Current Visit: Yes Status: Acute Plan to address problem: Extensive debridement done x 2over last 12 hours (3) Obesity hypoventilation syndrome Current Visit: Yes Status: Acute (4) Sepsis Current Visit: Yes Status: Acute Qualifiers: Sepsis type: sepsis due to unspecified organism Qualified Code(s): A41.9 - Sepsis, unspecified organism Subjective Date of service: 12/14/18 Principal diagnosis: DKA ,Necrotizing fascitis and Sepsis Interval history: 43 y/o AAM with DKA, Necrotizing fasciitis of rt thigh and sepsis underwent extensive debridement last night and this AM.Post op patient doing well .Still on Phenylephrine 40 mcg per minute. BG levels ranging from 200 to 350. Alert and oriented. Surgery recommendation was to transfer the patient to [facility] because of extensive Rt thigh wound . Objective - Constitutional Vitals: Vital Signs - 12hr 12/14/18 12/14/18 12/14/18 02:51 03:00 03:11 Temperature Pulse Rate 106 H 106 H 107 H Pulse Rate [ From Monitor] Respiratory 31 H 27 H 38 H Rate Blood Pressure 97/57 95/54 95/54 O2 Sat by Pulse 94 96 94 Oximetry 12/14/18 12/14/18 12/14/18 03:20 03:30 03:41 Temperature Pulse Rate 104 H 104 H 104 H Pulse Rate [ From Monitor] Respiratory 41 H 24 36 H Rate Blood Pressure 91/58 102/55 102/55 O2 Sat by Pulse 96 98 96 Oximetry 12/14/18 12/14/18 12/14/18 03:51 04:00 04:11 Temperature Pulse Rate 103 H 102 H 104 H Pulse Rate [ From Monitor] Respiratory 18 36 H 40 H Rate Blood Pressure 91/58 100/60 100/60 O2 Sat by Pulse 99 98 95 Oximetry 12/14/18 12/14/18 12/14/18 04:21 04:30 04:41 Temperature Pulse Rate 103 H 104 H 103 H Pulse Rate [ From Monitor] Respiratory 23 35 H 39 H Rate Blood Pressure 82/50 101/66 101/66 O2 Sat by Pulse 95 96 94 Oximetry 05/12/14/18 12/14/18 04:51 05:01 05:11 Temperature Pulse Rate 100 H 101 H 100 H Pulse Rate [ From Monitor] Respiratory 43 H 47 H 42 H Rate Blood Pressure 108/46 110/53 110/53 O2 Sat by Pulse 98 95 93 Oximetry 12/14/18 12/14/18 12/14/18 05:21 05:31 05:41 Temperature Pulse Rate 100 H 101 H 100 H Pulse Rate [ From Monitor] Respiratory 41 H 41 H 34 H Rate Blood Pressure 116/59 96/46 96/46 O2 Sat by Pulse 95 94 95 Oximetry 12/14/18 12/14/18 12/14/18 05:51 06:01 06:11 Temperature Pulse Rate 100 H 105 H 101 H Pulse Rate [ From Monitor] Respiratory 9 L 14 34 H Rate Blood Pressure 84/49 84/49 84/49 O2 Sat by Pulse 96 98 96 Oximetry 12/14/18 12/14/18 12/14/18 06:21 06:30 06:41 Temperature Pulse Rate 102 H 100 H 100 H Pulse Rate [ From Monitor] Respiratory 45 H 48 H 43 H Rate Blood Pressure 84/49 97/63 97/63 O2 Sat by Pulse 95 94 94 Oximetry 12/14/18 12/14/18 12/14/18 06:51 07:01 07:10 Temperature Pulse Rate 102 H 102 H 102 H Pulse Rate [ From Monitor] Respiratory 29 H 25 H 34 H Rate Blood Pressure 89/55 89/55 99/58 O2 Sat by Pulse 97 96 95 Oximetry 12/14/18 12/14/18 12/14/18 07:21 07:30 07:41 Temperature Pulse Rate 101 H 102 H 104 H Pulse Rate [ From Monitor] Respiratory 34 H 24 23 Rate Blood Pressure 99/63 99/62 99/62 O2 Sat by Pulse 96 97 97 Oximetry 12/14/18 12/14/18 12/14/18 07:51 08:00 08:15 Temperature 97.3 F L Pulse Rate 104 H 102 H 105 H Pulse Rate [ 104 H From Monitor] Respiratory 24 33 H 18 Rate Blood Pressure 90/46 84/41 113/70 O2 Sat by Pulse 98 95 97 Oximetry 12/14/18 12/14/18 12/14/18 08:30 08:45 08:57 Temperature Pulse Rate 103 H 105 H Pulse Rate [ From Monitor] Respiratory 40 H 25 H Rate Blood Pressure 108/64 105/63 O2 Sat by Pulse 95 96 96 Oximetry 12/14/18 12/14/18 12/14/18 09:00 12:01 12:05 Temperature 98.1 F Pulse Rate 103 H 95 H 96 H Pulse Rate [ From Monitor] Respiratory 38 H 36 H 42 H Rate Blood Pressure 105/68 114/71 108/73 O2 Sat by Pulse 97 100 100 Oximetry 12/14/18 12/14/18 12/14/18 12:10 12:15 12:30 Temperature Pulse Rate 95 H 95 H 93 H Pulse Rate [ From Monitor] Respiratory 40 H 38 H 41 H Rate Blood Pressure 113/70 115/74 120/71 O2 Sat by Pulse 100 100 100 Oximetry 12/14/18 12/14/18 12/14/18 12:46 12:55 13:17 Temperature 97.2 F L Pulse Rate 95 H 96 H 97 H Pulse Rate [ From Monitor] Respiratory 36 H 41 H 17 Rate Blood Pressure 113/65 110/75 O2 Sat by Pulse 98 97 100 Oximetry 12/14/18 12/14/18 12/14/18 13:30 13:45 14:00 Temperature Pulse Rate 96 H 95 H 94 H Pulse Rate [ From Monitor] Respiratory 25 H 40 H 18 Rate Blood Pressure 97/58 101/66 112/67 O2 Sat by Pulse 97 98 98 Oximetry 12/14/18 12/14/18 14:15 14:20 Temperature 97.2 F L Pulse Rate 94 H Pulse Rate [ From Monitor] Respiratory 40 H Rate Blood Pressure 101/66 O2 Sat by Pulse 98 Oximetry General appearance: Present: no acute distress, well-nourished - EENT Eyes: PERRL, EOM intact ENT: hearing intact, clear oral mucosa Ears: bilateral: normal - Neck Neck: supple, normal ROM - Respiratory Respiratory effort: normal Respiratory: bilateral: CTA - Breasts Breasts: normal - Cardiovascular Heart rate: 98 Rhythm: regular Heart Sounds: Present: S1 & S2. Absent: gallop, rub Extremities: no ischemia, pulses intact, No edema, normal color, Full ROM Extremity abnormal: ulceration (Rt thigh extensive wound from upper thigh to knee.Purulent drainage has stopped after debridement) - Gastrointestinal General gastrointestinal: Present: soft, non-tender, non-distended, normal bowel sounds - Genitourinary Male genitourinary: normal - Integumentary Integumentary: clear, warm, dry - Musculoskeletal Musculoskeletal: 1, strength equal bilaterally - Neurologic Neurologic: moves all extremities - Psychiatric Psychiatric: memory intact, appropriate mood/affect, intact judgment & insight - Allied health notes Allied health notes reviewed: nursing, case management - Labs CBC & Chem 7: 12/14/18 08:28 12/14/18 04:49 Labs: Abnormal lab results 12/13/18 12/13/18 12/13/18 Range/Units 13:07 13:07 14:52 WBC (4.5-11.0) K/mm3 Hgb (11.8-15.2) gm/dl Hct (35.5-45.6) % RDW (13.2-15.2) % Sodium (137-145) mmol/L Chloride (98-107) mmol/L Carbon Dioxide (22-30) mmol/L BUN (9-20) mg/dL Creatinine (0.8-1.5) mg/dL Glucose 611 H* (75-100) mg/dL POC Glucose (70-105) Lactic Acid 3.00 H* (0.7-2.0) mmol/L Calcium (8.4-10.2) mg/dL Crossmatch See Detail 12/13/18 12/13/18 12/13/18 Range/Units 14:52 15:46 17:00 WBC (4.5-11.0) K/mm3 Hgb (11.8-15.2) gm/dl Hct (35.5-45.6) % RDW (13.2-15.2) % Sodium 125 L (137-145) mmol/L Chloride 88.9 L (98-107) mmol/L Carbon Dioxide 18 L (22-30) mmol/L BUN 58 H (9-20) mg/dL Creatinine 2.6 H (0.8-1.5) mg/dL Glucose 518 H* (75-100) mg/dL POC Glucose 395 H 343 H (70-105) Lactic Acid (0.7-2.0) mmol/L Calcium 8.2 L (8.4-10.2) mg/dL Crossmatch 12/13/18 12/13/18 12/13/18 Range/Units 18:17 20:42 21:22 WBC (4.5-11.0) K/mm3 Hgb (11.8-15.2) gm/dl Hct (35.5-45.6) % RDW (13.2-15.2) % Sodium (137-145) mmol/L Chloride (98-107) mmol/L Carbon Dioxide (22-30) mmol/L BUN (9-20) mg/dL Creatinine (0.8-1.5) mg/dL Glucose (75-100) mg/dL POC Glucose 357 H 257 H 262 H (70-105) Lactic Acid (0.7-2.0) mmol/L Calcium (8.4-10.2) mg/dL Crossmatch 12/13/18 12/13/18 12/13/18 Range/Units 21:35 21:35 21:35 WBC 22.8 H (4.5-11.0) K/mm3 Hgb 11.6 L (11.8-15.2) gm/dl Hct 35.1 L (35.5-45.6) % RDW 15.5 H (13.2-15.2) % Sodium 133 L D (137-145) mmol/L Chloride 97.1 L (98-107) mmol/L Carbon Dioxide 21 L (22-30) mmol/L BUN 59 H (9-20) mg/dL Creatinine 2.7 H (0.8-1.5) mg/dL Glucose 250 H (75-100) mg/dL POC Glucose (70-105) Lactic Acid 2.80 H* (0.7-2.0) mmol/L Calcium 8.0 L (8.4-10.2) mg/dL Crossmatch 12/13/18 12/13/18 12/13/18 Range/Units 22:16 23:07 23:07 WBC (4.5-11.0) K/mm3 Hgb (11.8-15.2) gm/dl Hct (35.5-45.6) % RDW (13.2-15.2) % Sodium 131 L (137-145) mmol/L Chloride 95.7 L (98-107) mmol/L Carbon Dioxide (22-30) mmol/L BUN 61 H (9-20) mg/dL Creatinine 2.7 H (0.8-1.5) mg/dL Glucose 205 H (75-100) mg/dL POC Glucose 204 H (70-105) Lactic Acid 2.70 H* (0.7-2.0) mmol/L Calcium 8.3 L (8.4-10.2) mg/dL Crossmatch 12/13/18 12/14/18 12/14/18 Range/Units 23:14 00:11 01:09 WBC (4.5-11.0) K/mm3 Hgb (11.8-15.2) gm/dl Hct (35.5-45.6) % RDW (13.2-15.2) % Sodium (137-145) mmol/L Chloride (98-107) mmol/L Carbon Dioxide (22-30) mmol/L BUN (9-20) mg/dL Creatinine (0.8-1.5) mg/dL Glucose (75-100) mg/dL POC Glucose 211 H 236 H 134 H (70-105) Lactic Acid (0.7-2.0) mmol/L Calcium (8.4-10.2) mg/dL Crossmatch 12/14/18 12/14/18 12/14/18 Range/Units 02:05 03:14 04:00 WBC (4.5-11.0) K/mm3 Hgb (11.8-15.2) gm/dl Hct (35.5-45.6) % RDW (13.2-15.2) % Sodium (137-145) mmol/L Chloride (98-107) mmol/L Carbon Dioxide (22-30) mmol/L BUN (9-20) mg/dL Creatinine (0.8-1.5) mg/dL Glucose (75-100) mg/dL POC Glucose 139 H 139 H 146 H (70-105) Lactic Acid (0.7-2.0) mmol/L Calcium (8.4-10.2) mg/dL Crossmatch 12/14/18 12/14/18 12/14/18 Range/Units 04:49 05:03 06:14 WBC (4.5-11.0) K/mm3 Hgb (11.8-15.2) gm/dl Hct (35.5-45.6) % RDW (13.2-15.2) % Sodium 133 L (137-145) mmol/L Chloride (98-107) mmol/L Carbon Dioxide 21 L (22-30) mmol/L BUN 63 H (9-20) mg/dL Creatinine 2.8 H (0.8-1.5) mg/dL Glucose 150 H (75-100) mg/dL POC Glucose 140 H 137 H (70-105) Lactic Acid (0.7-2.0) mmol/L Calcium 7.9 L (8.4-10.2) mg/dL Crossmatch 12/14/18 12/14/18 12/14/18 Range/Units 07:16 08:28 08:30 WBC 26.2 H (4.5-11.0) K/mm3 Hgb 11.4 L (11.8-15.2) gm/dl Hct 35.0 L (35.5-45.6) % RDW 15.6 H (13.2-15.2) % Sodium (137-145) mmol/L Chloride (98-107) mmol/L Carbon Dioxide (22-30) mmol/L BUN (9-20) mg/dL Creatinine (0.8-1.5) mg/dL Glucose (75-100) mg/dL POC Glucose 144 H 151 H (70-105) Lactic Acid (0.7-2.0) mmol/L Calcium (8.4-10.2) mg/dL Crossmatch 12/14/18 12/14/18 12/14/18 Range/Units 09:00 11:34 12:15 WBC (4.5-11.0) K/mm3 Hgb (11.8-15.2) gm/dl Hct (35.5-45.6) % RDW (13.2-15.2) % Sodium (137-145) mmol/L Chloride (98-107) mmol/L Carbon Dioxide (22-30) mmol/L BUN (9-20) mg/dL Creatinine (0.8-1.5) mg/dL Glucose (75-100) mg/dL POC Glucose 164 H 148 H 170 H (70-105) Lactic Acid (0.7-2.0) mmol/L Calcium (8.4-10.2) mg/dL Crossmatch 05/30/19 Range/Units 14:24 WBC (4.5-11.0) K/mm3 Hgb (11.8-15.2) gm/dl Hct (35.5-45.6) % RDW (13.2-15.2) % Sodium (137-145) mmol/L Chloride (98-107) mmol/L Carbon Dioxide (22-30) mmol/L BUN (9-20) mg/dL Creatinine (0.8-1.5) mg/dL Glucose (75-100) mg/dL POC Glucose 198 H (70-105) Lactic Acid (0.7-2.0) mmol/L Calcium (8.4-10.2) mg/dL Crossmatch
[2018-12-14] MEDS ORDERED: VANCOMYCIN 2,000 MG in NACL 0.9% 500 ML 500 ML IV SCH (15:00)
[2018-12-14 15:21] LABS: Calcium 7.7 mg/dL (8.4-10.2)
[2018-12-14 15:23] LABS: Creatine Kinase MB 1.4 ng/mL (0.0-4.0)
[2018-12-14 15:56] LABS: Bacteria,Urine 1+ /HPF (Negative); Bilirubin,Urine NEG (Negative); Blood,Urine SM (Negative); Color,Urine Amber (Yellow); Mucus,Urine FEW /HPF; Protein,Urine <15 mg/dL mg/dL (Negative); Urobilinogen,Urine < 2.0 mg/dL (<2.0)
[2018-12-14] MEDS ORDERED: LEVOPHED DRIP 4 MG/NS 250 ML 4 MG/250 ML BAG IV SCH (16:00)
--- NOTE | 2018-12-14 16:10 | Procedure Note ---
Date of procedure: 12/14/18 Pre-op diagnosis: septic shock on pressors Post-op diagnosis: same Procedure: right internal jugular central line placement Findings: Time out performed. R neck prepped and draped in sterile fashion. Using mindray ultrasound guidance the right internal jugular vein was identified and compressible. The patient was placed in trendelenberg position. The skin was anesthetized with local anesthetic. The internal jugular vein was accessed on the first stick and there was return of dark red, nonpulsatile blood. The wire was threaded without resistance. All ports of central line were flushed with saline. The central line was inserted using modified seldinger technique. The wire was removed and all ports tracee blood easily and were flushed with saline. The central line was sutured to the skin using 3-0 silk suture and biopatch a pplied. Tegaderm dressing applied. The patient tolerated the procedure well. All sharps disposed of appropriately. Post operative CXR will be done. Anesthesia: AUTUMNA, local Surgeon: TAN THAKKAR Estimated blood loss: minimal Pathology: none Condition: stable Disposition: no change (Patient in OR for surgery with Dr. Montes)
[2018-12-14] MEDS ORDERED: NACL 0.9% 1000 ML 1,000 ML IV ONE (17:00)
[2018-12-14 21:12] VITALS: BP 105/79
[2018-12-14] MEDS ORDERED: PEPCID IV SCH (22:00)
--- NOTE | 2018-12-15 10:54 | Consultation ---
PULMONARY CRITICAL CARE EVALUATION CONSULTING PHYSICIAN: Manpreet Nugent MD REASON FOR CONSULTATION: Severe sepsis with shock. CHIEF COMPLAINT AND HISTORY OF PRESENT ILLNESS: The patient is a 43-year-old -Greek male with past medical history significant amongst other things for a diagnosis of diabetes, noncompliant with medications, came into the Emergency Room complaining of redness and pain in his right thigh, really over the past week, worsening symptoms in the preceding 48 hours. He also began to feel smell of foul smelling discharge from a newly formed thigh wound that had also developed in the preceding 48 hours. He was evaluated and found to be septic, also to be in diabetic ketoacidosis. He was hypotensive. He required volume resuscitation as well as vasopressor support with phenylephrine. He was brought into the Intensive Care Unit where we were asked to evaluate him. Of note, he had been evaluated by the surgeon and essentially found to have a necrotizing fasciitis infection going on. I believe he had had wound debridement and is back in the OR for further debridement today. When I stopped by to see him postop, he was resting in bed. He was still on the insulin drip, was now complaining of some chest pain, it was nonradiating. He denied any nausea or vomiting. He denied fevers or chills. He denied any prior nausea, vomiting, or overt aspiration prior to coming to the hospital. He also denies a history of tobacco use or abuse whatsoever. That really is as much of the history of presentation as I have. PAST MEDICAL HISTORY: Diabetes, hypertension. He is morbidly obese. He admits to a history of obstructive sleep apnea that he never treated and now the necrotizing fasciitis. PAST SURGICAL HISTORY: He had had surgery to his left leg in the past. Nature of which is unclear. MEDICATIONS: He was on at the time I stopped by to see were reviewed, pertinent medications included the following: Clindamycin 300 mg IV q. 6 hours, Pepcid 20 mg IV at bedtime, p.r.n. fentanyl 50 mcg IV was used perioperatively for severe pain, heparin 5000 units subcutaneous q.12 hours. Insulin drip, I believe was going at 4 units an hour, morphine 2 mg IV q. 4 hours p.r.n. moderate pain. Phenylephrine was going at 80 mcg per minute, Zosyn 2.25 grams IV q. 6 hours. He had a D5 half NS with 20 mEq of potassium chloride going at 125 mL per hour. ALLERGIES: No known drug allergies. DIET: Morbidly obese. Denies acute weight loss or gain in the preceding few weeks to months. FAMILY AND SOCIAL HISTORY: Lives in the community. He is single. Denies alcohol, tobacco, or illicit drug use or abuse. Family history is otherwise positive for diabetes and hypertension. REVIEW OF SYSTEMS: No loss of consciousness. No new onset seizures. No new onset focal weakness. No gross hematochezia or melena. No gross hematuria or dysuria. He denied hematemesis. He denied heat or cold intolerance. He did have some polydipsia prior to coming to the hospital. Complete 13-system review of systems obtained. Pertinent positives and/or negatives as in body of history above, otherwise they are noncontributory. PHYSICAL EXAMINATION: VITAL SIGNS: On examination at presentation, he was actually afebrile with a temperature of 98.9 Fahrenheit with a pulse of 150, respiratory rate of 26, blood pressure 121/66, O2 sats were 99%, inspired oxygen concentration was not recorded. T-max has been 100.5 degrees Fahrenheit, current temperature 97.2. Blood pressure 110/75. GENERAL: He is morbidly obese -Greek male. Normocephalic, atraumatic, talking to me with mostly full sentences and in respiratory distress. HEAD, EYES, EARS, NOSE, AND THROAT: He is anicteric. No conjunctival erythema. Oropharynx is moist, is Mallampati #3 oropharynx. No gross jugular venous distention, no thyromegaly. Grossly, no palpable lymph nodes in the supraclavicular or submandibular lymph node chains. LUNGS: Auscultation of the lung larsen revealed clear bilateral breath sounds without any wheezing. He has a right IJ central line now in place. HEART: Heart sounds 1 and 2 are heard. They were regular in rate and rhythm at the time of my evaluation without overt rubs or murmurs. ABDOMEN: Soft, full, bowel sounds are positive, nontender. No palpable hepatosplenomegaly. EXTREMITIES: Without overt digital clubbing or cyanosis. He had some mild edema in the right lower extremity. He has a large dressing over the right groin and right lateral upper thigh. No bleeding or exudation through the dressings, it is a clean white dressing. Dorsalis pedis and other pedal pulses are palpable bilaterally and strong. NEUROLOGIC: Pupils equal, round, about 4 mm, reactive to light. Extraocular muscle movements are intact. He moves all 4 extremities spontaneously. SKIN: Normal turgor. He has the necrotizing fasciitis as described above. LABORATORY DATA: From my review are as follows: Admission white cell count 26,700 with a hemoglobin of ____, hematocrit of 40.4, platelet count 286. INR was 1.28. Venous blood gas showed a pH of 7.39. Serum sodium was 129, potassium 4.1, chloride 89, bicarbonate 19, BUN 58, creatinine 2.6, glucose 518. Lactic acid was 2.8 at presentation. Liver function tests within normal limits. Albumin was low at 2.6. Lactic acid now is down to 1.7. White cell count is 26,200. Surgical cultures, blood cultures, no growth to date. Chest x-ray has been reviewed, essentially unremarkable chest x-ray. He has a right IJ with the tip in the distal SVC. No gross pneumothorax, no gross bony fracture. ASSESSMENT: 1. Severe sepsis with shock secondary to necrotizing fasciitis involving the right groin/upper thigh. 2. Necrotizing fasciitis involving the right groin/upper thigh. 3. Uncontrolled diabetes. 4. Morbid obesity. 5. Leukocytosis. 6. Untreated obstructive sleep apnea. 7. Hyponatremia. 8. Acute kidney injury. 9. Lactic acidosis that has now resolved. PLAN: I have discussed at length with the surgeon and the feeling is that he will need to be transferred to an outside hospital [facility] for continued wound care. He may likely require further debridements and certainly does need wound care, best provided by [facility]. In the meantime, we will continue broad-spectrum antibiotic therapies. We will continue to wean vasopressors to keep mean arterial pressures greater than or equal to about 65 mmHg. Aspiration precautions will be maintained. Because of his overall comorbidities, I will order cardiac enzymes in light of his chest pain. In the meantime, he will get p.r.n. analgesia. I will order a 12-lead EKG. GI and DVT prophylaxis will be continued as ordered. Flu and pneumonia vaccination will be addressed per protocol. We will transition him off the insulin, IV insulin therapy at this time. Electrolytes are monitored and followed as necessary. Nephrology evaluation will be at the behest of the attending physician. He is making urine at this time. We will continue gentle hydration. Flu and pneumonia vaccination will be addressed per protocol. Thank you very much for the consult Dr. Nugent. We will follow along and make further recommendations as picture progresses/becomes clearer. He is critically ill on life-sustaining interventions including vasopressors, at high risk of deterioration including the risk of . At this time, I spent about 35-40 minutes of critical care time without overlap and excluding any procedural time that may be necessary. JOB# [id number] BLAINE/BERHANE
== END 2018-12-14 21:05 | disposition home or self-care (01) | DRG 853 ==
LOC: ED 11:39 → CC1 12:45
PROVIDERS: ADMIT Internal Medicine; ATTEND Internal Medicine
PROC: 0JBL0ZZ Excision of Right Upper Leg Subcutaneous Tissue and Fascia, Open Approach (ICD-10-PCS; principal; 2018-12-13)
PROC: 0JBL0ZZ Excision of Right Upper Leg Subcutaneous Tissue and Fascia, Open Approach (ICD-10-PCS; 2018-12-14)
PROC: 02HV33Z Insertion of Infusion Device into Superior Vena Cava, Percutaneous Approach (ICD-10-PCS; 2018-12-14)
PROC: B548ZZA Ultrasonography of Superior Vena Cava, Guidance (ICD-10-PCS; 2018-12-14)
DX: A41.9 Sepsis, unspecified organism (principal); M72.6 Necrotizing fasciitis; E10.10 Type 1 diabetes mellitus with ketoacidosis without coma; R65.21 Severe sepsis with septic shock; E66.2 Morbid (severe) obesity with alveolar hypoventilation; E87.1 Hypo-osmolality and hyponatremia; N17.9 Acute kidney failure, unspecified; Z68.41 Body mass index [BMI] 40.0-44.9, adult; I10 Essential (primary) hypertension; Z82.49 Family history of ischemic heart disease and other diseases of the circulatory system; Z83.3 Family history of diabetes mellitus; Z82.3 Family history of stroke
CPT/HCPCS: 36415; 71045; 80048; 80053; 81001; 82140; 82550; 82553; 82805; 82962; 83735; 84100; 84484; 85007; 85025; 85027; 85610; 85730; 86850; 86900; 86901; 86920; 87040; 87075; 87076; 87086; 87116; 87186; 88304; 88305; 88341; 88342; 93005; 93010; 94760; 96374; 99291; G0378; A4217; A6260; J1170; J1644; J1815; J2270; J2370; J2405; J2543; J2704; J3010; J3370; J7030; J7040; J7120